=== PATIENT | female | born 1970 | race Two or more races ===

== ENCOUNTER 2023-03-17 14:26 | Inpatient (IN) | payer MEDICAID, OTHER ==
[~2023-03-17] VITALS: Ht 170.2 cm; Wt 124.2 kg
[2023-03-17 15:06] LABS: Basophils # (auto) 0 10 ^3/uL (0-0.2); Basophils % (auto) 0.5 % (0.0-2.0); Eosinophils # (auto) 0.1 10 ^3/uL (0-0.8); Eosinophils % (auto) 1.9 % (0.0-7.0); Hematocrit 40.8 % (36.0-46.0); Hemoglobin 13.5 g/dL (12.2-16.2); Lymphocytes # (auto) 2.4 10 ^3/uL (0.4-5.4); Lymphocytes % (auto) 30.7 % (10.0-50.0); Mean Corpuscular Hemoglobin 29.8 pg (28.0-32.0); Mean Corpuscular Hgb Conc. 33.1 g/dL (32.0-36.0); Mean Corpuscular Volume 89.8 fL (80.0-100.0); Monocytes # (auto) 0.5 10 ^3/uL (0-1.3); Monocytes % (auto) 6.6 % (0.0-12.0); Neutrophils # (auto) 4.6 10 ^3/uL (1.6-8.6); Neutrophils % (auto) 60.3 % (37.0-80.0); Nucleated Red Blood Cells % 0.1 %; Red Blood Cells 4.54 10^6/uL (4.0-5.20); White Blood Cell 7.7 10^3/uL (4.4-10.8)
[2023-03-17 15:12] LABS: INR 0.98 (0.9-1.15); Partial Thromboplastin Time 29.1 SEC (24.5-34.5); Prothrombin Time 10.3 sec (9.3-11.8)
[2023-03-17 15:13] LABS: Potassium 3.9 mmol/L (3.5-5.1)
[2023-03-17] MEDS ORDERED: ASPirin 325 MG TAB PO ONE (15:15)
[2023-03-17] MEDS ORDERED: NITROGLYCERIN 0.4 MG SL TAB SL ONE (15:15)
[2023-03-17 15:17] LABS: Albumin 3.7 g/dL (3.4-5.0); BUN/Creatinine Ratio 21.9 (10.0-20.0); Magnesium 2.4 mg/dL (1.6-2.6)
[2023-03-17 15:19] LABS: Bilirubin, Total 0.6 mg/dL (0.2-1.0); Total Protein 7.9 g/dL (6.4-8.2)
[2023-03-17] MEDS ORDERED: DOCUSATE SOD 100 MG CAP PO PRN (18:15)
[2023-03-17] MEDS ORDERED: MORPHINE SULFATE INJ 2 MG/ml SYRG IV PRN (18:15)
[2023-03-17] MEDS ORDERED: NITROGLYCERIN 0.4 MG SL TAB SL PRN (18:15)
[2023-03-17] MEDS ORDERED: ONDANSETRON HCL 4 MG/2 ML VIAL IV PRN (18:15)
[2023-03-17] MEDS: SODIUM CHLOR 0.9% PF (SALINE LOCK) 10ML VIAL/SYR IV SCH (22:00)
[2023-03-18 01:45] VITALS: PULSE 70; RESP 16; O2SAT 96
[2023-03-18 02:45] VITALS: PULSE 70; RESP 19; O2SAT 93
[2023-03-18 05:51] LABS: Basophils # (auto) 0 10 ^3/uL (0-0.2); Basophils % (auto) 0.5 % (0.0-2.0); Eosinophils # (auto) 0.1 10 ^3/uL (0-0.8); Eosinophils % (auto) 1.2 % (0.0-7.0); Hematocrit 38.5 % (36.0-46.0); Hemoglobin 12.9 g/dL (12.2-16.2); Lymphocytes # (auto) 1.6 10 ^3/uL (0.4-5.4); Lymphocytes % (auto) 22.1 % (10.0-50.0); Mean Corpuscular Hemoglobin 29.9 pg (28.0-32.0); Mean Corpuscular Hgb Conc. 33.5 g/dL (32.0-36.0); Mean Corpuscular Volume 89.5 fL (80.0-100.0); Monocytes # (auto) 0.6 10 ^3/uL (0-1.3); Monocytes % (auto) 7.8 % (0.0-12.0); Neutrophils # (auto) 4.9 10 ^3/uL (1.6-8.6); Neutrophils % (auto) 68.4 % (37.0-80.0); Nucleated Red Blood Cells % 0.1 %; Red Cell Distribution Width 14.5 % (11.8-14.3); White Blood Cell 7.2 10^3/uL (4.4-10.8)
[2023-03-18] MEDS: SODIUM CHLOR 0.9% PF (SALINE LOCK) 10ML VIAL/SYR IV SCH ×3 (06:07→21:17)
[2023-03-18] MEDS: ACETAMINOPHEN 325 MG TAB PO PRN ×2 (06:10→20:31)
[2023-03-18 06:18] LABS: Albumin 3.5 g/dL (3.4-5.0); Calcium 8.8 mg/dL (8.5-10.1); Potassium 3.3 mmol/L (3.5-5.1)
[2023-03-18 06:22] LABS: BUN/Creatinine Ratio 19.1 (10.0-20.0); Bilirubin, Total 1.8 mg/dL (0.2-1.0); Total Protein 8.1 g/dL (6.4-8.2)
[2023-03-18 06:22] LABS: Urine Bacteria NONE SEEN /hpf (None Seen); Urine Blood Negative /uL (Negative); Urine Clarity Clear (Clear); Urine Color Brown (Yellow); Urine Hyaline Cast MOD /lpf (0 - 2); Urine Mucus FEW (None Seen); Urine Protein, UAD TRACE (Negative); Urine Specific Gravity 1.025 (1.001-1.035); Urine WBC 5 /hpf (0 - 5); Urine pH 5.5 (5.0-8.0)
[2023-03-18 06:44] LABS: Alcohol, Urine < 3.0 mg/dL (0-10); Amphetamine Screen, Urine NEGATIVE (NEGATIVE); Barbiturate Scree,Urine NEGATIVE (NEGATIVE); Benzodiazephine Screen, Urine NEGATIVE (NEGATIVE); Cannabinoid Screen, Urine NEGATIVE (NEGATIVE); Cocaine Screen, Urine NEGATIVE (NEGATIVE); Opiate Scree,Urine NEGATIVE (NEGATIVE); Phencyclidine Screen, Urine NEGATIVE (NEGATIVE)
[2023-03-18 08:00] VITALS: PULSE 75; RESP 17; O2SAT 93
[2023-03-18] MEDS: POTASSIUM CHL 20MEQ/100ML 100 ML IV ONE ×2 (11:00→11:34)
[2023-03-18] MEDS ORDERED: POTASSIUM EFFERVESENT TAB 25 MEQ GT ONE (12:30)
[2023-03-18 18:06] VITALS: BP 109/62; PULSE 67; PULSE 68; RESP 16; TEMP 97.9; O2SAT 97
[2023-03-18] MEDS ORDERED: MELO7.5T7 PO (18:39)
[2023-03-18] MEDS ORDERED: HYDR12.59 PO (18:39)
[2023-03-18] MEDS ORDERED: LISI40TA16 PO (18:39)
[2023-03-18] MEDS ORDERED: AMLO1TAB22 PO (18:39)
[2023-03-18 20:00] VITALS: BP 113/54; PULSE 71; PULSE 75; RESP 18; RESP 19; TEMP 98.9; O2SAT 93
[2023-03-18 22:00] VITALS: BP 113/54; PULSE 75; RESP 19; TEMP 98.9; O2SAT 93
[2023-03-19 05:00] VITALS: BP 127/62; PULSE 72; RESP 18; TEMP 98.3; O2SAT 92
[2023-03-19] MEDS: SODIUM CHLOR 0.9% PF (SALINE LOCK) 10ML VIAL/SYR IV SCH ×2 (05:35→15:36)
[2023-03-19 07:17] LABS: Basophils # (auto) 0 10 ^3/uL (0-0.2); Basophils % (auto) 0.7 % (0.0-2.0); Eosinophils # (auto) 0.2 10 ^3/uL (0-0.8); Eosinophils % (auto) 4.2 % (0.0-7.0); Hematocrit 37.6 % (36.0-46.0); Hemoglobin 12.4 g/dL (12.2-16.2); Lymphocytes # (auto) 1.2 10 ^3/uL (0.4-5.4); Lymphocytes % (auto) 26.8 % (10.0-50.0); Mean Corpuscular Hemoglobin 29.9 pg (28.0-32.0); Mean Corpuscular Volume 90.8 fL (80.0-100.0); Monocytes # (auto) 0.4 10 ^3/uL (0-1.3); Monocytes % (auto) 8.8 % (0.0-12.0); Neutrophils # (auto) 2.6 10 ^3/uL (1.6-8.6); Neutrophils % (auto) 59.5 % (37.0-80.0); Red Blood Cells 4.14 10^6/uL (4.0-5.20); Red Cell Distribution Width 14.3 % (11.8-14.3); White Blood Cell 4.4 10^3/uL (4.4-10.8)
[2023-03-19 08:00] VITALS: BP 117/80; PULSE 65; PULSE 67; RESP 20; TEMP 98.2; O2SAT 93
[2023-03-19 08:09] LABS: Potassium 3.7 mmol/L (3.5-5.1)
[2023-03-19 08:17] LABS: Albumin 3.2 g/dL (3.4-5.0); BUN/Creatinine Ratio 22.3 (10.0-20.0); Bilirubin, Total 1.6 mg/dL (0.2-1.0); Calcium 8.9 mg/dL (8.5-10.1); Total Protein 7.6 g/dL (6.4-8.2)
[2023-03-19] MEDS ORDERED: HYDR25TA4 PO (08:34)
[2023-03-19] MEDS ORDERED: LISI20TA56 PO (08:34)
[2023-03-19] MEDS ORDERED: AMLO1TAB22 PO (08:34)
[2023-03-19 09:00] VITALS: BP 117/80; PULSE 65; RESP 20; TEMP 98.2; O2SAT 93
[2023-03-19] MEDS ORDERED: ASPI-543 PO (09:53)
[2023-03-19] MEDS ORDERED: ASPirin-EC 81 mg tab PO SCH (10:00)
[2023-03-19 13:00] VITALS: BP 127/78; PULSE 74; RESP 20; TEMP 97.8; O2SAT 93
[2023-03-19 16:10] VITALS: BP 127/78; PULSE 74; RESP 20; TEMP 97.8; O2SAT 95
[2023-03-19 17:00] VITALS: BP 139/80; PULSE 83; RESP 20; TEMP 97.7; O2SAT 95
== END 2023-03-19 18:10 | disposition home or self-care (01) | DRG 203 ==
LOC: ER 14:26 → TELE 18:12 → TELE-CENTR 03-18 17:51
PROVIDERS: ADMIT Internal Medicine Pulmonary Disease; ATTEND Internal Medicine
DX: R07.9 Chest pain, unspecified (principal); E66.01 Morbid (severe) obesity due to excess calories; K80.20 Calculus of gallbladder without cholecystitis without obstruction; F19.10 Other psychoactive substance abuse, uncomplicated; I12.9 Hypertensive chronic kidney disease with stage 1 through stage 4 chronic kidney disease, or unspecified chronic kidney disease; N18.9 Chronic kidney disease, unspecified; Z68.41 Body mass index [BMI] 40.0-44.9, adult; Z87.891 Personal history of nicotine dependence
CPT/HCPCS: 36415; 71045; 76705; 80053; 80061; 80307; 81001; 83735; 83880; 84484; 85025; 85610; 85730; 93005; 93306; G0378; J3480